=== PATIENT | female | born 1985 | race Caucasian/White ===

== ENCOUNTER 2017-01-01 14:09 | Emergency (ER) | payer SELFPAY ==
[2017-01-01 14:13] VITALS: BP 110/69; PULSE 75; TEMP 98; BMI 25.4
--- NOTE | 2017-01-01 14:16 | PDOC ---
History of Present Illness - General Chief Complaint: Urinary Problem Stated Complaint: POSSIBLE UTI History Source: Patient - History of Present Illness Timing/Duration: reports: other Quality: reports: burning Past History - Past Medical History Allergies/Adverse Reactions: Allergies Allergy/AdvReac Type Severity Reaction Status Date / Time No Known Allergies Allergy Verified 01/01/17 14:13 Home Medications: Ambulatory Orders Nitrofurantoin Monohyd/M-Cryst [Macrobid -] 100 mg PO BID #14 capsule 01/01/17 Phenazopyridine HCl [Pyridium] 200 mg PO TID #6 tablet 01/01/17 - Psycho/Social/Smoking Cessation Hx Suicidal Ideation: No Smoking History: Never smoked Information on smoking cessation initiated: No Review of Systems - Review of Systems Constitutional: No: Chills, Fever ABD/GI: No: Nausea, Vomiting : Yes: Dysuria, Hematuria. No: Flank Pain *Physical Exam - Vital Signs Last Vital Signs Temp Pulse Resp BP Pulse Ox 98 F 75 18 110/69 99 01/01/17 14:11 01/01/17 14:11 01/01/17 14:11 01/01/17 14:11 01/01/17 14:11 Medical Decision Making - Medical Decision Making 01/01/17 15:04 31 yo F, h/o recurrent uti, p/w dysuria and hematuria. No flank pain, n/v/f/c. No h/o renal stone See exam R/o uti Stable w/ no e/o pyelo -ua/cx pending -anticipate discharge w/ abx 01/01/17 15:14 01/01/17 15:16 Ua w/ 3+LE, ucx sent. Dc w/ abx *DC/Admit/Observation/Transfer Diagnosis at time of Disposition: Dysuria - Discharge Dispostion Disposition: HOME Condition at time of disposition: Good - Prescriptions Prescriptions: Nitrofurantoin Monohyd/M-Cryst [Macrobid -] 100 mg PO BID #14 capsule Phenazopyridine HCl [Pyridium] 200 mg PO TID #6 tablet - Patient Instructions Printed Discharge Instructions: Urinary Tract Infection Additional Instructions: Adrian orina muestra manuelito infeccin. Gabriel los medicamentos segn las indicaciones y regresar por empeoramiento de los sntomas. Print Language: PERSIAN
[2017-01-01 14:46] LABS: URINE APPEARANCE CLEAR; URINE BILIRUBIN NEGATIVE (NEGATIVE); URINE COLOR COLORLESS; URINE GLUCOSE (UA) NEGATIVE (NEGATIVE); URINE KETONE NEGATIVE (NEGATIVE); URINE NITRITE NEGATIVE (NEGATIVE); URINE PROTEIN NEGATIVE (NEGATIVE); URINE UROBILINOGEN NEGATIVE E.U./dl (0.2-1.0)
[2017-01-01 14:57] LABS: URINE BLOOD 2+ (NEGATIVE); URINE LEUK ESTERASE 3+ (NEGATIVE)
[2017-01-01 15:04] LABS: URINE BACTERIA RARE /hpf (NONE SEEN); URINE RBC 17 /hpf (0-3); URINE WBC 38 /hpf (3-5)
== END 2017-01-01 15:17 | disposition home or self-care (01) ==
LOC: JERFT 14:09
DX: N39.0 Urinary tract infection, site not specified (principal)
CPT/HCPCS: 81003; 81015; 84703; 87086; 87186; 99281-25

== ENCOUNTER 2019-04-15 21:00 | Emergency (ER) | payer OTHER ==
[2019-04-15 21:07] VITALS: BP 122/74; PULSE 88; TEMP 99; BMI 23.8
[2019-04-15] MEDS ORDERED: ALBUTEROL SO4 2.5/IPRATROPIUM 0.5 INH SOL 3 ML VIAL.NEB. NEB ONE ×3 (21:44→23:22)
--- NOTE | 2019-04-15 21:44 | PDOC ---
History of Present Illness - General Chief Complaint: Cold Symptoms Stated Complaint: COUGH X 2 DAYS Time Seen by Provider: 04/15/19 21:19 History Source: Patient - History of Present Illness Initial Comments: 04/15/19 22:36 Chief complaint: Cough Patient is a healthy 33-year-old female, no history of asthma, nonsmoker and no recent travel who states that she's been having worsening cough for 2 weeks and feels like she is having a hard time breathing. No fever. GENERAL/CONSTITUTIONAL: No fever, weakness. dizziness HEAD, EYES, EARS, NOSE AND THROAT: No change in vision. No ear pain or discharge. No sore throat. CARDIOVASCULAR: No chest pain RESPIRATORY: No shortness of breath +cough GASTROINTESTINAL: No pain, nausea, vomiting, diarrhea or constipation GENITOURINARY: No dysuria MUSCULOSKELETAL: No neck or back pain SKIN: No rash NEUROLOGIC: No headache, vertigo, loss of consciousness, or loss of sensation. GENERAL: The patient is awake, alert, and fully oriented, in no acute distress. HEAD: Normal with no signs of trauma. EYES: Pupils equal, round and reactive to light, sclera anicteric, conjunctiva clear. ENT: pharynx: no erythema, no exudate, uvula midline NECK: supple CHEST: Bilateral wheezing, nontender, rr ABD: soft, nontender BACK: no tenderness or signs of injury EXTREMITIES: Normal range of motion, no edema. NEUROLOGICAL: Normal speech, normal gait. SKIN: Warm, Dry Past History - Past Medical History Allergies/Adverse Reactions: Allergies Allergy/AdvReac Type Severity Reaction Status Date / Time No Known Allergies Allergy Verified 04/15/19 21:05 Home Medications: Ambulatory Orders Nitrofurantoin Monohyd/M-Cryst [Macrobid -] 100 mg PO BID #14 capsule 01/01/17 Phenazopyridine HCl [Pyridium] 200 mg PO TID #6 tablet 01/01/17 COPD: No - Immunization History Immunization Up to Date: Yes - Suicide/Smoking/Psychosocial Hx Smoking History: Never smoked Have you smoked in the past 12 months: No Hx Alcohol Use: No Drug/Substance Use Hx: No *Physical Exam - Vital Signs Last Vital Signs Temp Pulse Resp BP Pulse Ox 99.0 F 88 18 122/74 98 04/15/19 21:05 04/15/19 21:05 04/15/19 21:05 04/15/19 21:05 04/15/19 21:05 Medical Decision Making - Medical Decision Making 04/15/19 22:38 Healthy 33-year-old female with no history of asthma, cough for 2 weeks, worsening, now with bilateral wheezing, no fever. Patient's vitals are stable, she is not tachycardic or hypoxic. We'll give patient DuoNeb and prednisone, reassess. Will order chest x-ray since no history of asthma. Patient somewhat improved, second DuoNeb ordered. Will sign out to Kam Dial. 04/15/19 22:59 *DC/Admit/Observation/Transfer Diagnosis at time of Disposition: Cough - Discharge Dispostion Disposition: HOME Condition at time of disposition: Stable - Referrals - Patient Instructions - Post Discharge Activity
[2019-04-15] MEDS ORDERED: predniSONE 20 MG TABLET (UD) ONE (21:45)
[2019-04-15] MEDS ORDERED: predniSONE 20 MG TABLET (UD) PO ONE (21:45)
--- NOTE | 2019-04-16 00:05 | PDOC ---
*Physical Exam - Vital Signs Last Vital Signs Temp Pulse Resp BP Pulse Ox 99.0 F 88 18 122/74 98 04/15/19 21:05 04/15/19 21:05 04/15/19 21:05 04/15/19 21:05 04/15/19 21:05 <Lanie Sauer - Last Filed: 04/16/19 01:04> - Vital Signs Last Vital Signs Temp Pulse Resp BP Pulse Ox 99.0 F 88 18 122/74 98 04/15/19 21:05 04/15/19 21:05 04/15/19 21:05 04/15/19 21:05 04/15/19 21:05 <Rik Segovia - Last Filed: 04/16/19 01:27> ED Treatment Course - Medications Given in the ED: ED Medications Discontinued Medications Generic Name Dose Route Start Last Admin Trade Name Freq PRN Reason Stop Dose Admin Albuterol/Ipratropium 1 amp 04/15/19 21:44 04/15/19 21:48 Duoneb - NEB 04/15/19 21:45 1 amp ONCE ONE Administration Prednisone 40 mg 04/15/19 21:45 04/15/19 21:48 Deltasone - PO 04/15/19 21:46 40 mg ONCE ONE Administration <Lanie Sauer - Last Filed: 04/16/19 01:04> - Medications Given in the ED: ED Medications Discontinued Medications Generic Name Dose Route Start Last Admin Trade Name Freq PRN Reason Stop Dose Admin Albuterol/Ipratropium 1 amp 04/15/19 21:44 04/15/19 21:48 Duoneb - NEB 04/15/19 21:45 1 amp ONCE ONE Administration Prednisone 40 mg 04/15/19 21:45 04/15/19 21:48 Deltasone - PO 04/15/19 21:46 40 mg ONCE ONE Administration <Rik Segovia - Last Filed: 04/16/19 01:27> Medical Decision Making - Medical Decision Making 04/16/19 01:04 Patient Name: CLAUDIA KHAN THIS IS A PRELIMINARY REPORT FROM IMAGING DIRECTOR TOXICOLOGY DATE OF SERVICE: 2019-04-15 22:39:08 IMAGES: 2 EXAM: X-RAY CHEST Bilateral peribronchial thickening and interstitial prominence, possibly bronchitis. No focal lung consolidation or pleural effusions. Hypoinflation lungs. Cardiomediastinal silhouette unremarkable. Bones unremarkable. <Lanie Sauer - Last Filed: 04/16/19 01:04> - Medical Decision Making 04/16/19 00:04 Patient endorsed to me to follow radiology read of XRAY. Patient in no acute distress she is intermittently coughing. cxr And feels improved after treatment. 04/16/19 01:20 Patient Full Name: ERIN TAYLOR Patient Accession No: [id number] Patient : 1985 Reason for Exam: persistent cough Referring Physician: TRISTA CH Patient Name: CLAUDIA KHAN THIS IS A PRELIMINARY REPORT FROM IMAGING DIRECTOR TOXICOLOGY DATE OF SERVICE: 2019-04-15 22:39:08 IMAGES: 2 EXAM: X-RAY CHEST Bilateral peribronchial thickening and interstitial prominence, possibly bronchitis. No focal lung consolidation or pleural effusions. Hypoinflation lungs. Cardiomediastinal silhouette unremarkable. Bones unremarkable. THIS DOCUMENT HAS BEEN ELECTRONICALLY SIGNED Yadira Bowman M.D. 04/16/2019 00:59 EST Princess. Please call Imaging Duplicating Machine Operator [phone] ([phone]) with questions. INTERPRETING RADIOLOGIST: Yadira Bowman MD Electronically Signed: Apr 16, 2019 01:00AM EDT Your Discharge Instructions: You must call primary care physician within 24 hours to arrange follow-up. Return to the Emergency Department with any new, persistent or worsening symptoms, for fever, chills, SOB, dizziness or any other concerning changes that may occur. <Rik Segovia - Last Filed: 04/16/19 01:27> *DC/Admit/Observation/Transfer <Lanie Sauer - Last Filed: 04/16/19 01:04> <Rik Segovia - Last Filed: 04/16/19 01:27> Diagnosis at time of Disposition: Cough, Bronchitis - Discharge Dispostion Disposition: HOME Condition at time of disposition: Stable - Patient Instructions Printed Discharge Instructions: DI for Acute Bronchitis Additional Instructions: Your Discharge Instructions: You must call primary care physician within 24 hours to arrange follow-up. Return to the Emergency Department with any new, persistent or worsening symptoms, for fever, chills, SOB, dizziness or any other concerning changes that may occur. - Post Discharge Activity Forms/Work/School Notes: Back to Work
[2019-04-16] MEDS ORDERED: ALBUTEROL SO4 2.5/IPRATROPIUM 0.5 INH SOL 3 ML VIAL.NEB. NEB SCH ×2 (08:00)
== END 2019-04-16 01:35 | disposition home or self-care (01) ==
LOC: JERFT 21:00 → JER 21:00
PROC: 3E0F7GC Introduction of Other Therapeutic Substance into Respiratory Tract, Via Natural or Artificial Opening (ICD-10-PCS; principal; 2019-04-15)
DX: J40 Bronchitis, not specified as acute or chronic (principal)
CPT/HCPCS: 71046-TC-FY; 94640; 99281-25